=== PATIENT | female | born 1995 | race Two or more races ===

== ENCOUNTER 2020-08-18 07:21 | Inpatient (IN) | payer BC ==
[~2020-08-18] VITALS: Ht 167.6 cm; Wt 88.6 kg
[2020-08-18] MEDS ORDERED: PREN1TAB60 PO (07:29)
[2020-08-18] MEDS ORDERED: TERBUTALINE 1 MG/ML, 1ML IVPush PRN (08:00)
[2020-08-18] MEDS ORDERED: TERBUTALINE 1 MG/ML, 1ML SQ PRN (08:00)
[2020-08-18] MEDS ORDERED: D5%-LACTATED RINGERS 1,000 ML IV SCH (08:00)
[2020-08-18] MEDS ORDERED: ONDANSETRON 2MG/ML, 2ML IVPush PRN ×2 (08:00→09:00)
[2020-08-18] MEDS ORDERED: OXYTOCIN 30U/ 0.9% NaCL 500ML 500 ML IV PRN (08:00)
[2020-08-18] MEDS ORDERED: FENTANYL PF 100 MCG/2ML IVPush PRN (08:00)
[2020-08-18] MEDS ORDERED: OXYTOCIN 30U/ 0.9% NaCL 500ML 500 ML IV ONE (08:00)
[2020-08-18] MEDS ORDERED: NEWBORN KIT ONE ×2 (08:02→13:01)
[2020-08-18] MEDS ORDERED: OXYTOCIN 30U/ 0.9% NaCL 500ML 500 ML ONE (08:03)
[2020-08-18] MEDS: LACTATED RINGERS 1,000 ML IV SCH ×2 (08:23→13:06)
[2020-08-18 08:41] LABS: BASOPHILS % (AUTO) 0 % (0-1); EOSINOPHILS % (AUTO) 1 % (1-7); LYMPHOCYTES % (AUTO) 23 % (22-44); MEAN CORPUSCULAR HEMOGLOBIN 28.5 pg (27.0-34.8); MEAN CORPUSCULAR HGB CONC 32.6 g/dL (32.4-35.8); MEAN PLATELET VOLUME 10.3 fL (7.4-10.4); MONOCYTES % (AUTO) 8 % (2-9); NEUTROPHILS % (AUTO) 68 % (42-75); PLATELET COUNT 209 x10^3/uL (130-400); RED BLOOD COUNT 3.76 x10^6/uL (3.82-5.3); RED CELL DISTRIBUTION WIDTH 13.5 % (9.6-15.2)
[2020-08-18] MEDS ORDERED: BUPIVACAINE 0.25% ONE (08:43)
[2020-08-18] MEDS ORDERED: FENTANYL/BUPIV./NS/PF 250 ML EPIDCONT ONE (08:43)
[2020-08-18] MEDS ORDERED: EPHEDRINE 50 MG/ML, 1ML IVPush PRN (09:00)
[2020-08-18] MEDS ORDERED: NALOXONE 0.4 MG/ML, 1ML IVPush PRN (09:00)
[2020-08-18] MEDS ORDERED: DIPHENHYDRAMINE 50 MG/ML, 1ML IVPush PRN (09:00)
[2020-08-18] MEDS ORDERED: LACTATED RINGERS 1,000 ML IVBOLUS PRN (09:00)
[2020-08-18] MEDS ORDERED: LACTATED RINGERS 1,000 ML IV SCH (09:00)
[2020-08-18] MEDS ORDERED: FENTANYL/BUPIV./NS/PF 250 ML EPIDCONT SCH (09:00)
[2020-08-18 09:08] LABS: MD NO
[2020-08-18] MEDS ORDERED: IBUPROFEN 600 MG TABLET PO PRN (15:00)
[2020-08-18] MEDS ORDERED: ONDANSETRON 2MG/ML, 2ML IV PRN (15:00)
[2020-08-18] MEDS ORDERED: SIMETHICONE 80 MG CHEW TAB PO PRN (15:00)
[2020-08-18] MEDS ORDERED: DOCUSATE 100 MG CAPSULE PO PRN (15:00)
[2020-08-18] MEDS ORDERED: ACETAMINOPHEN 325 MG TABLET PO PRN (15:00)
[2020-08-18] MEDS: OXYTOCIN 30U/ 0.9% NaCL 500ML 500 ML IV SCH (15:00)
[2020-08-18] MEDS ORDERED: OXYcodone/APAP 5/325MG TABLET PO PRN (15:00)
[2020-08-18] MEDS ORDERED: MISOPROSTOL 200 MCG TABLET PR PRN (15:00)
[2020-08-18 17:19] VITALS: BP 114/72
[2020-08-18 20:00] VITALS: BP 119/73
[2020-08-18 23:17] LABS: BASOPHILS % (AUTO) 0 % (0-1); EOSINOPHILS % (AUTO) 0 % (1-7); LYMPHOCYTES % (AUTO) 13 % (22-44); MEAN CORPUSCULAR HEMOGLOBIN 28.3 pg (27.0-34.8); MEAN CORPUSCULAR HGB CONC 33.2 g/dL (32.4-35.8); MEAN PLATELET VOLUME 10.5 fL (7.4-10.4); MONOCYTES % (AUTO) 7 % (2-9); NEUTROPHILS % (AUTO) 79 % (42-75); PLATELET COUNT 170 x10^3/uL (130-400); RED BLOOD COUNT 3.43 x10^6/uL (3.82-5.3); RED CELL DISTRIBUTION WIDTH 13.5 % (9.6-15.2)
[2020-08-18 23:18] LABS: MD NO
[2020-08-19] MEDS: OXYTOCIN 30U/ 0.9% NaCL 500ML 500 ML IV SCH ×2 (01:00→11:00)
[2020-08-19 02:00] VITALS: BP 111/67
[2020-08-19 05:00] VITALS: BP 105/69
[2020-08-19 08:01] VITALS: BP 126/80
[2020-08-19] MEDS ORDERED: PRENATAL VIT/IRON/FA 1 EACH TABLET PO SCH (09:00)
[2020-08-19 12:45] VITALS: BP 122/78
[2020-08-19] MEDS ORDERED: ACET650S21 PO (13:30)
[2020-08-19] MEDS ORDERED: IBUP-1222 PO (13:30)
== END 2020-08-19 15:30 | disposition home or self-care (01) | DRG 807 ==
LOC: LDOP 07:21 → LDIP 07:55 → 2NW 17:00
PROVIDERS: ADMIT Obstetrics & Gynecology; ATTEND Obstetrics & Gynecology
PROC: 10E0XZZ Delivery of Products of Conception, External Approach (ICD-10-PCS; principal; 2020-08-18)
PROC: 0HQ9XZZ Repair Perineum Skin, External Approach (ICD-10-PCS; 2020-08-18)
PROC: 3E0R3BZ Introduction of Anesthetic Agent into Spinal Canal, Percutaneous Approach (ICD-10-PCS; 2020-08-18)
PROC: 00HU33Z Insertion of Infusion Device into Spinal Canal, Percutaneous Approach (ICD-10-PCS; 2020-08-18)
DX: O70.0 First degree perineal laceration during delivery (principal); Z37.0 Single live birth; Z20.828 Contact with and (suspected) exposure to other viral communicable diseases; Z3A.38 38 weeks gestation of pregnancy
CPT/HCPCS: 36415; 84112; 85025; 86592; 86850; 86900; 87635; G0378; J2590; J3010; J7120